=== PATIENT | male | born 1980 | race Caucasian/White ===

== ENCOUNTER 2016-08-21 21:25 | Emergency (ER) | payer OTHER ==
[~2016-08-21] VITALS: Ht 195.6 cm; Wt 104.3 kg
[2016-08-21 21:32] VITALS: BP 157/95
[2016-08-21] MEDS ORDERED: HYDROcodone/APAP 5/325MG 1 TAB TABLET PO ONE (22:00)
[2016-08-21] MEDS ORDERED: NAPROXEN 500 MG TABLET PO ONE (22:00)
[2016-08-21] MEDS ORDERED: NAPR500T8 PO (22:12)
[2016-08-21] MEDS ORDERED: HYDR-971 PO (22:12)
--- NOTE | 2016-08-21 22:13 | PHYS DOC ---
Past Medical History Past Medical History: No Pertinent History Past Surgical History: No Surgical History Alcohol Use: Occasionally Drug Use: None Adult General Chief Complaint Chief Complaint: KNEE INJURY HPI HPI Patient is a 36 year old male who presents with moderate left knee pain that began today after he fell on it during soccer. Patient denies any loss of consciousness. Review of Systems Review of Systems Constitutional: Denies fever or chills [] Eyes: Denies change in visual acuity, redness, or eye pain [] Musculoskeletal: Left knee pain Integument: Denies rash or skin lesions [] Neurologic: Denies headache, focal weakness or sensory changes [] Endocrine: Denies polyuria or polydipsia [] Current Medications Current Medications Current Medications Medications (Trade) Dose Ordered Sig/Deidra Start Time Stop Time Status Last Admin Dose Admin Acetaminophen/ Hydrocodone Bitart (Lortab 5/325) 1 tab 1X ONCE 08/21/16 22:00 08/21/16 22:01 DC 08/21/16 21:58 1 TAB Naproxen (Naprosyn) 500 mg 1X ONCE 08/21/16 22:00 08/21/16 22:01 DC 08/21/16 21:59 500 MG Allergies Allergies Allergies Coded Allergies Type Severity Reaction Last Updated Verified No Known Drug Allergies 08/21/16 No Physical Exam Physical Exam Constitutional: Well developed, well nourished, no acute distress, non-toxic appearance. [] HENT: Normocephalic, atraumatic, bilateral external ears normal, oropharynx moist, no oral exudates, nose normal. [] Skin: Warm, dry, no erythema, no rash. [] Back: No tenderness, no CVA tenderness. [] Extremities: Left knee with small amount of soft tissue swelling. Tenderness on palpation of left medial knee. Slightly Limited extension of the left knee due to pain. Negative Jesse sign, negative Milton sign. +2 left pedal pulse. Cap refill less than 2 seconds and left lower extremity. Sensation intact to the left lower extremity Neurologic: Alert and oriented X 3, normal motor function, normal sensory function, no focal deficits noted. [] Psychologic: Affect normal, judgement normal, mood normal. [] Current Patient Data Vital Signs Vital Signs Date Time Temp Pulse Resp B/P (MAP) Pulse Ox O2 Delivery O2 Flow Rate FiO2 08/21/16 21:32 98.5 71 20 98 Room Air 98.5 EKG EKG [] Radiology/Procedures Radiology/Procedures [] Course & Med Decision Making Course & Med Decision Making Pertinent Labs and Imaging studies reviewed. (See chart for details) Patient is in the ED with left knee pain after falling on it during soccer. x- rays of the left knee interpreted by Dr. Cardenas are negative for any acute findings. Yg wrap to the left knee by the ED RN, neurovascular exam done by me is normal, ice elevation encouraged. Naproxen for pain. Given a short supply of hydrocodone as needed for severe pain. Follow-up with orthopedic doctor in one week. Dragon Disclaimer Dragon Disclaimer This electronic medical record was generated, in whole or in part, using a voice recognition dictation system. Departure Departure Impression: Primary Impression: Left knee sprain Additional Impression: Fall from standing Disposition: HOME, SELF-CARE Condition: STABLE Referrals: DELFIN WILLIAMSON MD (PCP) SAMEER MCFADDEN MD Follow-up with the orthopedic doctor in the course of this week Patient Instructions: Knee Sprain Additional Instructions: You were seen for left knee sprain after falling. Your x-rays are negative for any acute findings. Wear the yg wrap as tolerated. Ice and elevate the extremity. Follow-up with the provided orthopedic doctor in the course of the week if pain continues. Scripts Hydrocodone/Apap 5-325 (NORCO 5-325 TABLET) 1 Each Tablet 1-2 TAB PO Q4-6HRS, #14 TAB Prov: XENIA ESCOBEDO APRN 08/21/16 Naproxen (NAPROXEN) 500 Mg Tablet. 1 TAB PO BID, #60 TAB 1 Refill Prov: XENIA ESCOBEDO APRN 08/21/16 Problem Qualifiers Primary Impression: Left knee sprain Encounter type: initial encounter Involved ligament of knee: unspecified ligament Qualified Codes: S83.92XA - Sprain of unspecified site of left knee, initial encounter Additional Impression: Fall from standing Encounter type: initial encounter Qualified Codes: W19.XXXA - Unspecified fall, initial encounter XENIA ESCOBEDO APRN August 21, 2016 22:13
--- NOTE | 2016-08-22 07:43 | RAD ---
Left knee with patella, 4 views, 08/21/2016: History: Knee injury, pain No fracture is identified. The patella is centered slightly laterally relative to the trochlear groove. It does not demonstrate loc dislocation. Is there clinical evidence of patellar instability? No joint effusion is seen. IMPRESSION: No acute bony abnormality is detected.
== END 2016-08-21 22:28 | disposition home or self-care (01) ==
LOC: ER 21:25
DX: S83.92XA Sprain of unspecified site of left knee, initial encounter (principal); W18.39XA Other fall on same level, initial encounter; Y93.66 Activity, soccer; Y92.89 Other specified places as the place of occurrence of the external cause; Y99.8 Other external cause status
CPT/HCPCS: 29505; 73564; 99284-25

== ENCOUNTER → 2016-08-30 | Outpatient (CLI) | payer OTHER ==
[2016-08-21 21:32] VITALS: BP 157/95
[~2016-08-30] MED LIST: HYDR-971 PO; NAPR500T8 PO
--- NOTE | 2016-08-30 15:23 | KCIC ---
MR of the left knee HISTORY: Left knee pain mostly medial. Soccer injury August 21, 2016. TECHNIQUE: Routine multiplanar sequences are obtained. FINDINGS: No evidence of medial meniscal tear. No evidence of lateral meniscal tear. Anterior cruciate ligament is irregular and poorly defined compatible with a high-grade tear. Pivot shift bone injuries with a mildly compressed subchondral fracture of the lateral femoral and small bone marrow contusions at the posterior medial and lateral tibial plateau. Posterior cruciate ligament is intact. Diffuse medial collateral ligament sprain and partial tearing throughout its length. There appears to be complete rupture of the distal medial collateral ligament with slight proximal retraction and ligament undulation. Iliotibial band unremarkable. Fibular collateral ligament, biceps femoris tendon and popliteus tendon are intact. Extensor mechanism is intact. Moderate joint effusion. No evidence of an osteochondral loose body. Mild chondromalacia of the patella. Small intraosseous cystic changes at the proximal tibia deep to the anterior cruciate ligament insertion. There is mild soft tissue edema and contusion around the knee, greatest medially. Mild lateral patellar tilt and subluxation. IMPRESSION: 1. High-grade anterior cruciate ligament tear. 2. Diffuse medial collateral ligament tearing, with complete rupture at its distal attachment. 3. Mild chondromalacia of the patella. Electronically signed by: Cameron Estrada MD (08/30/2016 3:19 PM)
== END | disposition home or self-care (01) ==
LOC: KCIC MRI 14:26
PROVIDERS: ATTEND Orthopaedic Surgery
DX: M25.562 Pain in left knee (principal)
CPT/HCPCS: 73721